=== PATIENT | female | born 2000 | race Two or more races ===

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

== ENCOUNTER 2021-10-25 20:24 | Emergency (ER) | payer OTHER ==
[~2021-10-25] VITALS: Ht 162.6 cm; Wt 72.7 kg
[2021-10-25 20:26] VITALS: BP 140/94
[2021-10-25] MEDS ORDERED: KETOROLAC TROMETHAMINE 60 MG/2 ML VIAL IM ONE (22:00)
== END 2021-10-25 22:46 | disposition home or self-care (01) ==
LOC: EMS 20:27
DX: S83.92XA Sprain of unspecified site of left knee, initial encounter (principal); X50.1XXA Overexertion from prolonged static or awkward postures, initial encounter; Y93.89 Activity, other specified; Y92.89 Other specified places as the place of occurrence of the external cause; Y99.8 Other external cause status
CPT/HCPCS: 99283; 73562; 96372; J1885